=== PATIENT | male | born 1970 | race Caucasian/White ===

== ENCOUNTER 2023-11-03 09:00 | Outpatient (CLI) | payer BC, MEDICARE, SELFPAY ==
--- NOTE | 2023-11-18 12:26 | WPDHOMESLEEP ---
Sleep Study - Home Unattended Date of Study: 11/03/23 Ordering Provider: Heather Branham NP Interpreting Provider: Carissa Salazar, DO Home Sleep Study Type: Watch PAT Height: 1.78 m Weight: 99.79 kg Body Mass Index: 31.5 Neck Circumference (inches): 17.5 [place]: 2 Reason for Sleep Study Atrial fibrillation Sleep History The patient is a 53-year-old male that had a sleep study ordered by his primary care for evaluation of sleep apnea. The patient denies awakening from sleep short of breath. He denies awakening at night with heartburn, belching or cough. He denies snoring. Has trouble sleeping when he has a cold. He denies waking up gasping for air throughout the night. He denies having breathing problems at night observed by himself or others. He denies sweating excessively at night. He denies having heart palpitations or irregular heartbeats during the night. He denies falling asleep during the day and while driving. He denies sleep paralysis, cataplexy and hypnagogic / hypnopompic hallucinations. He denies having trouble at school or work due to sleepiness. He denies feeling afraid of going to sleep. He rarely has nightmares. He occasionally remembers his dreams. He denies having thoughts racing through his mind. He denies feeling sad or depressed. He rarely has anxiety. He rarely has muscular tension. He occasionally notices parts of his body jerk. He denies kicking during the night. He rarely has crawling and aching feelings in his legs and denies having leg pain during the night he denies grinding his teeth during sleep denies awakening with morning jaw pain. He is occasionally bothered by pain during the day but rarely awakened by pain during the night. He rarely wakes up feeling stiff in the morning. He occasionally wakes up with sore or achy muscles. He rarely wakes up with pain in the neck, spine and other joints. He goes to bed at 10:30 p.m. on weekdays and at midnight on the weekends. It takes him 20-30 minutes to fall asleep. He wakes up 2-3 times throughout the night to adjust physician and is able to fall back asleep within 10 minutes. He wakes up between 7 8:00 a.m. on both weekdays and weekends. He typically gets 6-8 hours of sleep per night. He will stay in bed for a few minutes after waking up in the morning. He currently lives with his . He denies consuming any caffeinated beverages within 2 hours of bedtime. He denies engaging in physical exercise before bedtime. He denies reading before falling asleep. He will watch television before falling asleep. He denies taking naps in afternoon or the evening. He consumes 1 cup of coffee per day. He denies tobacco, alcohol and recreational drug use. [facility] Past Medical History Medical History Afib Arthritis Back pain with history of spinal surgery Bloating BMI 32.0-32.9,adult BMI 34.0-34.9,adult Constipation Elevated blood pressure reading in office with diagnosis of hypertension Hyperlipidemia Insomnia Surgical History Surgical History H/O elbow surgery Right elbow lateral epicondylitis release H/O right knee surgery Right torn meniscus History of appendectomy History of lumbar surgery Lumbar Microdisectomy- 2004, 2006 Lumbar Fusion T2-T5 - 2009 History of thoracic spinal fusion Jan 2022 Hx of prior ablation treatment Atrial Fibrillation Ablation 2017 S/P cervical spinal fusion Cervical fusion C3-C5 2010 Cervical microdiscectomy with fusion 2002 S/P LASIK surgery of both eyes Family History Family History Mother Depression Heart disease Cerebrovascular accident Thyroid disorder Other Family history of cardiovascular disease Family history of malignant neoplasm Hypertension Social History Social History (Reviewed 11/18/23 @ 12:27
[2023-11-18 13:04] VITALS: BMI 31.5
== END 2023-11-04 12:23 | disposition home or self-care (01) ==
LOC: ANHCSM 09:03
PROVIDERS: PCP Nurse Practitioner Family; Visit Provider Nurse Practitioner Family
DX: G47.00 Insomnia, unspecified (principal); G47.33 Obstructive sleep apnea (adult) (pediatric)
CPT/HCPCS: 95800

== ENCOUNTER 2024-01-28 09:56 | Emergency (ER) | payer BC, MEDICARE, SELFPAY ==
[2024-01-28] VITALS (11 sets, daily range): BP systolic 113–141; BP diastolic 66–88; PULSE 67–87; RESP 12–20; TEMP 36.6; O2SAT 98–100
--- NOTE | ~2024-01-28 | CT_ITS ---
Clinical Indication: Chest pain CT Scan of the Chest with Contrast: Technique: Contiguous sections were acquired throughout the chest after intravenous administration of 100 cc of Omnipaque 350. Dose reduction technique was used on this scan by utilizing automated expos ure control and iterative reconstruction technique. The dose-length product (DLP) was 959.03 mGy-cm. Findings: There is no evidence of any significant mediastinal, hilar or axillary lymphadenopathy. There is no f illing defect in the pulmonary arterial tree to suggest pulmonary embolus. There is no evidence of ao rtic dissection or aneurysm. There is no evidence of pleural or pericardial effusion. The lungs are clear. No pulmonary nodules or infiltrates are noted. Images through the upper abdomen reveal small gallstone. Extensive spinal fixation hardware present. Impression: No evidence of pulmonary embolus, aortic dissection, or aortic aneurysm. Clear lungs. Reviewed, dictated and finalized at [facility]. Impression: No evidence of pulmonary embolus, aortic dissection, or aortic aneurysm. Clear lungs.
--- NOTE | ~2024-01-28 | XR_ITS ---
Clinical Indication: Chest pain PA and lateral views of the chest: Comparison: None Findings: The lungs are clear, without evidence of focal consolidation or pleural effusion. Cardiome diastinal silhouette is within normal limits. Extensive spinal fixation hardware present. Impression: Clear lungs. Reviewed, dictated and finalized at location . Impression: Clear lungs.
--- NOTE | 2024-01-28 10:06 | ECG_ITS ---
Test Date: 2024-01-28 10:02:47 Measurements Intervals [place] Rate: 82 P: 0 UT: 0 QRS: 26 QRSD: 88 T: 62 QT: 344 QTc: 404 Interpretive Statements SUPRAVENTRICULAR RHYTHM ABNORMAL RHYTHM ECG No previous ECG available for comparison Electronically Signed On 01-28-2024 10:43:38 CDT by Urbano Malone M.D.
[2024-01-28] MEDS: ASPIRIN 81 MG CHEWABLE TABLET 324 MG PO (10:15)
[2024-01-28 10:17] LABS: Basophils Absolute Auto 0.1 K/mm3 (0.0-0.1); Basophils Percent Auto 0.5 % (0.2-1.2); Eosinophils Absolute Auto 0.4 K/mm3 (0-0.3); Eosinophils Percent Auto 3.8 % (0-4.4); Hematocrit 32.4 % (42.0-52.0); Hemoglobin 10.6 g/dL (14.0-18.0); Immature Granulocyte Absolute 0.12 K/mm3 (0.00-0.031); Immature Granulocyte Percent A 1.3 % (0-0.5); Lymphocytes Absolute Auto 1.88 K/mm3 (0.9-3.2); Mean Corpuscular HGB Conc 32.7 g/dl (32-36); Mean Corpuscular Hemoglobin 30.7 pg (26-34); Mean Corpuscular Volume 93.9 fl (80-100); Monocytes Absolute Auto 0.8 K/mm3 (0.1-0.6); Monocytes Percent Auto 8.6 % (2.6-8.5); Neutrophils Absolute Auto 6.2 K/mm3 (1.3-6.7); Neutrophils Percent Auto 65.8 % (45.5-73.1); Platelet Count Result 301 k/mm3 (150-375); Red Blood Count 3.45 M/mm3 (4.6-6.20); Red Cell Distribution Width 14.6 % (11.5-14.5); White Blood Count 9.4 K/mm3 (4.5-10.0)
[2024-01-28 10:40] LABS: INR 1.1; Prothrombin Time 14.3 Seconds (11.1-14.7)
[2024-01-28 10:41] LABS: Partial Thromboplastin Time 26.1 Seconds (22.3-36.8)
[2024-01-28 10:52] LABS: Alanine Aminotransferase 96 U/L (6-50); Albumin Level 3.8 g/dL (3.5-5.1); Alkaline Phosphatase 100 U/L (38-126); Anion Gap 7 mmol/L (4-12); Aspartate Amino Transferase 86 U/L (17-59); Blood Urea Nitrogen 11 mg/dL (9-20); Carbon Dioxide 30 mmol/L (22-30); Chloride 102 mmol/L (98-107); D Dimer 7.11 ug/mL (<0.48); Estimated CRCL calculation 93 ml/min; Estimated Glomerular Filt Rate > 60; Glucose 100 mg/dL (65-110); Lipase 57 U/L (23-300); Potassium 3.7 mmol/L (3.4-5.0); Sodium 139 mmol/L (137-145)
[2024-01-28 11:04] LABS: Troponin I < 0.012 ng/mL (0.000-0.034)
[2024-01-28 12:30] LABS: NT Pro B Type Natriuretic Pept 279 pg/mL (19.9-100)
--- NOTE | 2024-01-28 12:53 | ED.CHESTPAIN ---
HPI - Chest Pain General Chief Complaint: Chest Pain Stated Complaint: chest pain Time Seen by Provider: 01/28/24 10:11 History of Present Illness HPI narrative: Patient is a 53-year-old male who presents to the ER with chest pain. He reports he recently had back surgery and neck surgery. Patient has a history of multiple surgeries, DVT, AFib, high blood pressure. patient reports an increase in belching when he stands and walks. He reports he got a blood transfusion on Wednesday. Patient denies shortness of breath. He reports pain from his recent surgery but patient is not taking narcotics for pain. He has a history of gastric reflux disease. Patient denies any fevers, leg pain, or shortness of breath. Related Data Home Medications Medication Instructions Recorded Confirmed acetaminophen 500 mg tablet 500 mg PO Q6H PRN 08/16/23 11/15/23 (Tylenol Extra Strength) arginine HCl (L-arginine) 1,000 mg mg PO 08/16/23 11/15/23 tablet ascorbic acid (vitamin C) 1,000 mg 1 g PO DAILY 08/16/23 11/15/23 capsule aspirin 81 mg tablet,delayed 81 mg PO DAILY 08/16/23 11/15/23 release (Adult Low Dose Aspirin) calcium 600 mg (as cap PO 08/16/23 11/15/23 carbonate)-vitamin D3 25 mcg (1,000 unit) capsule melatonin 5 mg capsule mg PO 08/16/23 11/15/23 metoprolol tartrate 25 mg tablet 12.5 mg PO BID 08/16/23 11/15/23 multivitamin with minerals 1 tablet PO DAILY 08/16/23 11/15/23 ufnzjowhsdly-nhvatdjr-lgbdhv tablet 1 tablet PO DAILY 08/16/23 11/15/23 omega-3 fatty acids [Fish Oil] PO 08/16/23 11/15/23 potassium 99 mg tablet mg PO 08/16/23 11/15/23 psyllium husk 0.52 gram capsule 0.52 g PO DAILY 08/16/23 11/15/23 (Daily Fiber) Allergies Allergy/AdvReac Type Severity Reaction Status Date / Time No Known Allergies Allergy Verified 01/28/24 10:01 Review of Systems Review of Systems: All systems reviewed & are unremarkable except as noted in HPI and below PMFSH Past Medical History Medical History Afib Arthritis Back pain with history of spinal surgery Bloating BMI 32.0-32.9,adult BMI 34.0-34.9,adult Constipation Elevated blood pressure reading in office with diagnosis of hypertension Hyperlipidemia Insomnia Surgical History Surgical History H/O elbow surgery Right elbow lateral epicondylitis release H/O right knee surgery Right torn meniscus History of appendectomy History of lumbar surgery Lumbar Microdisectomy- 2004, 2006 Lumbar Fusion T2-T5 - 2009 History of thoracic spinal fusion Jan 2022 Hx of prior ablation treatment Atrial Fibrillation Ablation 2017 S/P cervical spinal fusion Cervical fusion C3-C5 2010 Cervical microdiscectomy with fusion 2002 S/P LASIK surgery of both eyes Family History Family History Mother Depression Heart disease Cerebrovascular accident Thyroid disorder Other Family history of cardiovascular disease Family history of malignant neoplasm Hypertension Social History Social History Smoking status: Never smoker Alcohol intake: current Alcohol use details: Beer/Iron Socially on weekends Substance use: never Living arrangements: with family Occupation/Education: retired Exam Narrative: GENERAL: Well appearing, well-nourished, non-toxic, in no acute distress. HEAD: Normocephalic, atraumatic. NECK: Supple. No adenopathy, no masses. Anterior neck incision dry and intact. RESPIRATORY: Airway patent, respirations nonlabored. Clear to auscultation bilaterally, no rales, rhonchi, wheezing. CARDIOVASCULAR: Regular rate and rhythm without murmurs, rubs, or gallops. Peripheral pulses 2+ and equal bilaterally. Mild bilateral lower extremity edema. ABDOMINAL: Soft, nontender, nondistended, no hepatosplenomegaly.
--- NOTE | 2024-01-28 13:11 | ECG_ITS ---
Test Date: 2024-01-28 13:17:43 Measurements Intervals [place] Rate: 74 P: 69 UT: 146 QRS: 9 QRSD: 89 T: 28 QT: 378 QTc: 421 Interpretive Statements SINUS RHYTHM WITH SINUS ARRHYTHMIA Compared to ECG 01/28/2024 10:02:47 Supraventricular rhythm no longer present Electronically Signed On 01-28-2024 13:58:49 CDT by Urbano Malone M.D.
[2024-01-28 13:48] LABS: Troponin I < 0.012 ng/mL (0.000-0.034)
[2024-01-28] MEDS: BELLADONNA ALK/PHENOB ELIX 10 ML, MAG HYDROX/ALUMINUM HYD/SIMETH 30 ML, LIDOCAINE HCL 2... PO (13:49)
[2024-01-28] MEDS: TIZANIDINE HCL 1 MG TABLET PO (14:50)
== END 2024-01-28 16:34 | disposition home or self-care (01) ==
PROVIDERS: Preventive Medicine Aerospace Medicine; Emergency Provider Registered Nurse; PCP Family Medicine
DX: R07.89 Other chest pain (principal); M54.9 Dorsalgia, unspecified; Z98.890 Other specified postprocedural states; I48.91 Unspecified atrial fibrillation; I10 Essential (primary) hypertension; E78.5 Hyperlipidemia, unspecified; K21.9 Gastro-esophageal reflux disease without esophagitis; M19.90 Unspecified osteoarthritis, unspecified site; Z98.1 Arthrodesis status; Z86.718 Personal history of other venous thrombosis and embolism; Z79.82 Long term (current) use of aspirin; R94.31 Abnormal electrocardiogram [ECG] [EKG]
CPT/HCPCS: 36415; 71046; 71275; 80053; 83690; 83880; 84484; 85025; 85380; 85610; 85730; 93005; 99284; A9270; Q9967

== ENCOUNTER 2024-10-25 13:06 | Outpatient (CLI) | payer BC, MEDICARE, SELFPAY ==
--- NOTE | ~2024-10-25 | MM_ITS ---
EXAMINATION: MM diagnostic shelli BI w timothy HISTORY: Lumpiness of the breasts TECHNIQUE: 3-D tomosynthesis images of the breasts were performed and synthetic 2-D images were gener ated. CAD analysis was submitted and interpreted. COMPARISON: None BREAST PARENCHYMAL COMPOSITION:Not Dense. The breasts are almost entirely fatty FINDINGS: No suspicious abnormality seen in either breast. No mass lesion or distortion. No suspiciou s microcalcification. IMPRESSION: No mammographic evidence for malignancy. BI-RADS Category 1: Negative Reviewed, dictated and finalized at location .
== END 2024-10-25 13:07 | disposition home or self-care (01) ==
LOC: ANHIMG 13:06
PROVIDERS: PCP Nurse Practitioner Family; Visit Provider Nurse Practitioner Family
DX: N63.11 Unspecified lump in the right breast, upper outer quadrant (principal); N63.22 Unspecified lump in the left breast, upper inner quadrant
CPT/HCPCS: 77062; 77066; G0279